=== PATIENT | female | born 1945 | race Two or more races ===

== ENCOUNTER → 2018-08-25 | Emergency (ER) | payer OTHER ==
[~2018-08-25] VITALS: Ht 160 cm; Wt 72.6 kg
[~2018-08-25] MED LIST: ATARAX25 MG PO; ATENOLOL50 MG; ATORVASTATIN CA20 MG; DICYCLOMINE HCL10 MG; DILTIAZEM 24HR180 MG; ENABLEX7.5 MG; MEDROL4 MG; METOCLOPRAMIDE10 MG; MUCINEX SINUS-1 EAC2; PRILOSEC20 MG; ZANTAC300 MG; ZYRTEC10 MG PO
== END | disposition home or self-care (01) ==
LOC: ER 04:55
DX: K29.60 Other gastritis without bleeding (principal); N39.0 Urinary tract infection, site not specified; B96.89 Other specified bacterial agents as the cause of diseases classified elsewhere

== ENCOUNTER 2018-09-12 02:55 | Emergency (ER) | payer OTHER ==
[~2018-09-12] VITALS: Ht 154.9 cm; Wt 63.5 kg
[2018-09-12] MEDS ORDERED: PHENERGAN25 MG PO (07:59)
[2018-09-12] MEDS ORDERED: INTESTINEX680 M1 PO (07:59)
[2018-09-12] MEDS ORDERED: PEPCID AC20 MG PO (07:59)
[2018-09-12] MEDS ORDERED: KETO10TA2 PO (07:59)
[2018-09-12] MEDS ORDERED: LEVSIN/SL0.125 MG SL (07:59)
[2018-09-12] MEDS ORDERED: CEFUROXIME500 MG PO (07:59)
== END 2018-09-12 08:15 | disposition home or self-care (01) ==
LOC: ER 02:55
DX: R10.11 Right upper quadrant pain (principal); N39.0 Urinary tract infection, site not specified; B96.89 Other specified bacterial agents as the cause of diseases classified elsewhere

== ENCOUNTER 2019-05-10 14:43 | Emergency (ER) | payer OTHER ==
[~2019-05-10] VITALS: Ht 154.9 cm; Wt 57.6 kg
[~2019-05-10 14:43] MED LIST changes: +CEFUROXIME500 MG PO; +INTESTINEX680 M1 PO; +KETO10TA2 PO; +LEVSIN/SL0.125 MG SL; +PEPCID AC20 MG PO; +PHENERGAN25 MG PO
== END 2019-05-10 23:46 | disposition home or self-care (01) ==
LOC: ER 14:43
DX: K29.60 Other gastritis without bleeding (principal)